=== PATIENT | male | born 1960 | race Caucasian/White ===

== ENCOUNTER 2024-02-16 09:21 | Emergency (ER) | payer MEDICAID, OTHER ==
[~2024-02-16] VITALS: Ht 182.9 cm; Wt 80.0 kg
[2024-02-16 09:35] VITALS: O2SAT 100
[2024-02-16 11:20] LABS: BASOPHILS % 0.2 % (0.0-2.0); HEMATOCRIT. 39.5 % (42.0-52.0); HEMOGLOBIN. 13.6 g/dL (14.0-18.0); LYMPHOCYTES % 8.9 % (20.0-50.0); MEAN CORPUSCULAR HEMOGLOBIN 31.6 pg (28.0-32.0); MEAN CORPUSCULAR HGB CONC 34.4 g/dL (31.0-37.0); MEAN CORPUSCULAR VOLUME 91.9 fL (80.0-94.0); MEAN PLATELET VOLUME 6.6 fl (7.4-10.4); MONOCYTES % 9.4 % (2.0-8.0); NEUTROPHILS % 81.5 % (40.0-76.0); PLATELET 287 x1000/uL (130-400); RED CELL DISTRIBUTION WIDTH 13.3 % (11.6-14.6); WHITE BLOOD COUNT 14.3 x1000/uL (4.5-11.0)
[2024-02-16] MEDS: PIPERACILLIN/TAZO 3.375G/50ML 50 ML IV STA (11:24)
[2024-02-16] MEDS: KETOROLAC 15MG/ML VIAL IV ONE (11:24)
[2024-02-16 11:30] LABS: CHLORIDE 96 mEq/L (98-107); INR 1.1; POTASSIUM 3.6 mEq/L (3.5-5.1); PROTHROMBIN TIME 12.2 sec (9.6-11.0); SODIUM 128 mEq/L (136-145)
[2024-02-16 11:31] LABS: CARBON DIOXIDE 25 mEq/L (21-32)
[2024-02-16 11:36] LABS: CREATININE 1.2 mg/dL (0.6-1.3); GLUCOSE 113 mg/dL (70-105); UREA NITROGEN BLOOD 16 mg/dL (9-23)
[2024-02-16 11:38] LABS: ALANINE AMINOTRANSFERASE 18 IU/L (10-49); ALBUMIN 4.1 g/dL (3.2-4.8); ASPARTATE AMINOTRANSFERASE 15 IU/L (<34); BILIRUBIN TOTAL 0.7 mg/dL (0.1-1.0)
[2024-02-16 11:58] VITALS: BP 138/76; PULSE 75; RESP 16; TEMP 98.7
[2024-02-16 12:07] LABS: ERYTHROCYTE SEDIMENTATION RATE 62 mm/hr (0-20)
[2024-02-16] MEDS: VANCOMYCIN 1G PREMIX 200 ML IV STA (12:21)
[2024-02-16] MEDS ORDERED: CLINDAMYCIN 600 MG in DEXTROSE 5% WATER 50 ML IV STA (13:52)
[2024-02-16] MEDS ORDERED: CLINDAMYCIN 600MG PREMIX 50 ML IV NR (14:15)
[2024-02-16] MEDS ORDERED: CLIN300C3 MT (14:17)
== END 2024-02-16 14:34 | disposition left against medical advice (07) ==
LOC: ER 09:21 → CANBEDREQ 17:40
DX: M79.89 Other specified soft tissue disorders (principal); L08.9 Local infection of the skin and subcutaneous tissue, unspecified; F17.210 Nicotine dependence, cigarettes, uncomplicated
CPT/HCPCS: 80053; 85025; 85610; 85651; 86850; 86900; 86901; 36415; 73130; 96367; 96365; 96375; 99284; J1885; J2543; J3370; Z7610 ×2; J3490; J7060

== ENCOUNTER 2024-02-17 10:51 | Inpatient (IN) | payer OTHER ==
[~2024-02-17] VITALS: Ht 181.6 cm; Wt 73.9 kg
[~2024-02-17 10:51] MED LIST: CLIN300C3 MT
[2024-02-17 10:59] VITALS: O2SAT 98
[2024-02-17] MEDS: SODIUM CHLORIDE 0.9% 1,000 ML IV ONE (13:10)
[2024-02-17] MEDS: PIPERACILLIN/TAZO 3.375G/50ML 50 ML IV SCH ×2 (13:10→22:13)
[2024-02-17] MEDS: KETOROLAC 30MG/ML VIAL IV NR (13:11)
[2024-02-17 13:13] LABS: BASOPHILS % 0.2 % (0.0-2.0); EOSINOPHILS % 0.2 % (0.0-5.0); HEMATOCRIT. 38.6 % (42.0-52.0); LYMPHOCYTES % 7.6 % (20.0-50.0); MEAN CORPUSCULAR HEMOGLOBIN 31.3 pg (28.0-32.0); MEAN CORPUSCULAR HGB CONC 33.7 g/dL (31.0-37.0); MEAN CORPUSCULAR VOLUME 92.6 fL (80.0-94.0); MEAN PLATELET VOLUME 6.9 fl (7.4-10.4); MONOCYTES % 7.5 % (2.0-8.0); NEUTROPHILS % 84.5 % (40.0-76.0); PLATELET 320 x1000/uL (130-400); RED BLOOD CELL COUNT 4.17 mill/uL (4.7-6.1); RED CELL DISTRIBUTION WIDTH 13.7 % (11.6-14.6)
[2024-02-17 13:20] LABS: INR 1.1; PROTHROMBIN TIME 11.8 sec (9.6-11.0)
[2024-02-17 13:26] LABS: CHLORIDE 98 mEq/L (98-107); POTASSIUM 3.4 mEq/L (3.5-5.1); SODIUM 131 mEq/L (136-145)
[2024-02-17 13:27] LABS: CALCIUM 9.2 mg/dL (8.7-10.4); CARBON DIOXIDE 29 mEq/L (21-32)
[2024-02-17 13:32] LABS: GLUCOSE 96 mg/dL (70-105)
[2024-02-17 13:33] LABS: UREA NITROGEN BLOOD 18 mg/dL (9-23)
[2024-02-17 13:34] LABS: ALANINE AMINOTRANSFERASE 19 IU/L (10-49); ALBUMIN 4.2 g/dL (3.2-4.8); ASPARTATE AMINOTRANSFERASE 15 IU/L (<34)
[2024-02-17 13:35] LABS: BILIRUBIN TOTAL 0.4 mg/dL (0.1-1.0); PROTEIN TOTAL 7.4 g/dL (6.0-8.3)
[2024-02-17 13:51] LABS: ETHANOL BLOOD < 10 mg/dL (<10)
[2024-02-17 15:23] VITALS: BP 129/74; PULSE 82; RESP 18; TEMP 97.8
[2024-02-17 16:00] VITALS: BP 115/63; PULSE 80; RESP 18; TEMP 98.8
[2024-02-17] MEDS: VANCOMYCIN 1GM/200ML PMX (BAXTER) IV SCH (18:44)
[2024-02-17 20:00] VITALS: BP 117/60; PULSE 85; RESP 18; TEMP 97.9
[2024-02-17] MEDS: HYDROCODONE/ACETAMINOPHEN 10/325MG TABLET PO PRN (22:31)
[2024-02-18 04:00] VITALS: BP 107/59; PULSE 67; RESP 18; TEMP 97.6
[2024-02-18 07:58] LABS: BASOPHILS % 0.7 % (0.0-2.0); EOSINOPHILS % 0.4 % (0.0-5.0); HEMATOCRIT. 36.7 % (42.0-52.0); HEMOGLOBIN. 12.5 g/dL (14.0-18.0); LYMPHOCYTES % 7.6 % (20.0-50.0); MEAN CORPUSCULAR HEMOGLOBIN 31.1 pg (28.0-32.0); MEAN CORPUSCULAR HGB CONC 33.9 g/dL (31.0-37.0); MEAN CORPUSCULAR VOLUME 91.8 fL (80.0-94.0); MEAN PLATELET VOLUME 7.5 fl (7.4-10.4); MONOCYTES % 4.9 % (2.0-8.0); NEUTROPHILS % 86.4 % (40.0-76.0); PLATELET 301 x1000/uL (130-400); RED CELL DISTRIBUTION WIDTH 13.3 % (11.6-14.6); WHITE BLOOD COUNT 12.6 x1000/uL (4.5-11.0)
[2024-02-18 08:14] LABS: CARBON DIOXIDE 24 mEq/L (21-32); CHLORIDE 102 mEq/L (98-107); POTASSIUM 3.3 mEq/L (3.5-5.1); SODIUM 133 mEq/L (136-145)
[2024-02-18 08:19] LABS: CREATININE 0.9 mg/dL (0.6-1.3)
[2024-02-18 08:20] LABS: GLUCOSE 177 mg/dL (70-105); UREA NITROGEN BLOOD 12 mg/dL (9-23)
[2024-02-18 08:36] LABS: CALCIUM 8.6 mg/dL (8.7-10.4)
[2024-02-18 20:00] VITALS: BP 118/66; PULSE 80; RESP 19; TEMP 96.7
[2024-02-18] MEDS: POTASSIUM CHLORIDE 20MEQ TABLET SR PO SCH (21:35)
[2024-02-19] VITALS: BP 121/68; PULSE 84; RESP 19; TEMP 97.6
[2024-02-19 04:00] VITALS: BP 109/49; PULSE 66; RESP 18; TEMP 98.8
== END 2024-02-19 08:17 | disposition left against medical advice (07) | DRG 383 ==
LOC: ER 10:51 → 6EST 13:37 → EDBEDREQ 13:43
PROVIDERS: ADMIT Internal Medicine; ATTEND Internal Medicine
DX: L03.114 Cellulitis of left upper limb (principal); I96 Gangrene, not elsewhere classified; L02.512 Cutaneous abscess of left hand; F17.210 Nicotine dependence, cigarettes, uncomplicated; Z53.29 Procedure and treatment not carried out because of patient's decision for other reasons
CPT/HCPCS: 36415; 80048; 80053; 80320; 85025; 99285; J1885; J2543; J3370; G0480